=== PATIENT | male | born 1955 | race Caucasian/White ===

== ENCOUNTER 2018-02-06 12:03 | Emergency (ER) | payer MEDICAID ==
[2018-02-06 12:04] VITALS: BMI 26.5
--- NOTE | 2018-02-06 12:59 | ED PDOC ---
Arrival/HPI - General Chief Complaint: Abnormal Skin Integrity Time Seen by Provider: 02/06/18 12:55 Historian: Patient - History of Present Illness Narrative History of Present Illness (Text): 02/06/18 12:56 62yo male with no pmhx who present with complaint of pruritic rash x 2days. Thinks is from "bug bites". He otherwise denies sore throat, fever, chills, lymph node swelling, any new inciting factors, any other complaint. Past Medical History - Provider Review Nursing Documentation Reviewed: Yes - Infectious Disease Hx of Infectious Diseases: None - Tetanus Immunization Tetanus Immunization: Unknown - Cardiac Hx Cardiac Disorders: No - Pulmonary Hx Respiratory Disorders: No - Neurological Hx Neurological Disorder: Yes Hx Syncope: Yes Other/Comment: syncopal episodes-VASOVAGAL - HEENT Hx HEENT Disorder: Yes - Renal Hx Renal Disorder: No - Endocrine/Metabolic Hx Endocrine Disorders: No - Hematological/Oncological Hx Blood Disorders: No - Integumentary Hx Dermatological Disorder: No - Musculoskeletal/Rheumatological Hx Musculoskeletal Disorders: No Hx Falls: No - Gastrointestinal Hx Gastrointestinal Disorders: Yes Hx Gastroesophageal Reflux: Yes - Genitourinary/Gynecological Hx Genitourinary Disorders: No - Psychiatric Hx Psychophysiologic Disorder: No Hx Depression: No Hx Emotional Abuse: No Hx Physical Abuse: No Hx Substance Use: No - Past Surgical History Past Surgical History: No Previous - Anesthesia Hx Anesthesia: No - Suicidal Assessment Feels Threatened In Home Enviroment: No Family/Social History - Physician Review Nursing Documentation Reviewed: Yes Family/Social History: Unknown Family HX Smoking Status: Former Smoker Hx Alcohol Use: No Hx Substance Use: No Hx Substance Use Treatment: No Allergies/Home Meds Allergies/Adverse Reactions: Allergies No Known Allergies Allergy (Verified 06/01/16 08:57) Home Medications: Home Meds Medication Instructions Recorded Confirmed Omeprazole 20 mg PO PRN PRN 06/01/16 02/06/18 Review of Systems - Physician Review All systems were reviewed & negative as marked: Yes - Review of Systems Constitutional: Normal Eyes: Normal ENT: Normal Respiratory: Normal Cardiovascular: Normal Gastrointestinal: Normal Genitourinary Male: Normal Musculoskeletal: Normal Skin: Rash, Pruritis Neurological: Normal Endocrine: Normal Hemo/Lymphatic: Normal Psychiatric: Normal Physical Exam Vital Signs Reviewed: Yes Vital Signs Temp Pulse Resp BP Pulse Ox 02/06/18 13:38 98.3 F 72 18 124/71 99 02/06/18 12:16 98.0 F 82 17 117/73 98 Temperature: Afebrile Blood Pressure: Normal Pulse: Regular Respiratory Rate: Normal Appearance: Positive for: Well-Appearing, Non-Toxic, Comfortable Pain Distress: None Mental Status: Positive for: Alert and Oriented X 3 - Systems Exam Head: Present: Atraumatic, Normocephalic Pupils: Present: PERRL Extroacular Muscles: Present: EOMI Conjunctiva: Present: Normal Mouth: Present: Moist Mucous Membranes Neck: Present: Normal Range of Motion Respiratory/Chest: Present: Clear to Auscultation, Good Air Exchange. No: Respiratory Distress, Accessory Muscle Use Cardiovascular: Present: Regular Rate and Rhythm, Normal S1, S2. No: Murmurs Abdomen: No: Tenderness, Distention, Peritoneal Signs Back: Present: Normal Inspection Upper Extremity: Present: Normal Inspection. No: Cyanosis, Edema Lower Extremity: Present: Normal Inspection. No: Edema Neurological: Present: GCS=15, CN II-XII Intact, Speech Normal Skin: Present: Warm, Dry, Rashes (Combination of raised papular, macular and nodulated rash noted to b/l palm and volar hand.), Normal Color Psychiatric: Present: Alert, Oriented x 3, Normal Insight, Normal Concentration Medical Decision Making ED Course and Treatment: 02/06/18 18:52 PT presented for stated history. He presented with rash. He was treated with both permethrin, prednisone and Benadryl Referred to a hot wire glass tube cutter He was also seen in ED by Dr. Oseguera - Medication Orders Current Medication Orders: Discontinued Medications Diphenhydramine HCl (Benadryl) 25 mg PO STAT STA Stop: 02/06/18 13:01 Last Admin: 02/06/18 13:36 Dose: 25 mg Permethrin (Permethrin 5% Cream) 0 gm TOP ONCE STA Stop: 02/06/18 13:02 Last Admin: 02/06/18 13:37 Dose: 1 gm Prednisone (Prednisone Tab) 40 mg PO STAT STA Stop: 02/06/18 13:02 Last Admin: 02/06/18 13:36 Dose: 40 mg Disposition/Present on Arrival - Present on Arrival Any Indicators Present on Arrival: No History of DVT/PE: No History of Uncontrolled Diabetes: No Urinary Catheter: No History of Decub. Ulcer: No History Surgical Site Infection Following: None - Disposition Have Diagnosis and Disposition been Completed?: Yes Diagnosis: Insect bite Disposition: HOME/ ROUTINE Disposition Time: 13:05 Patient Plan: Discharge Condition: STABLE Discharge Instructions (ExitCare): Insect Bites and Stings Additional Instructions: Follow up with your Doctor Return to ED for any new or worsening symptoms Prescriptions: DiphenhydrAMINE [Benadryl] 25 mg PO Q6 #20 cap predniSONE [Prednisone] 10 mg PO DAILY #4 tab Referrals: Almaz Ramos MD [Primary Care Provider] - Follow up with primary Forms: [employer] ([place])
[2018-02-06] MEDS ORDERED: DiphenhydrAMINE 12.5 mg/5 ml LIQ UD (5 ml) PO STA (13:00)
[2018-02-06] MEDS ORDERED: Permethrin 5% Cream(60 gm) TOP STA (13:01)
[2018-02-06 13:41] VITALS: BP 124/71; PULSE 72; RESP 18; TEMP 98.3; O2SAT 99
== END 2018-02-06 13:41 | disposition home or self-care (01) ==
LOC: ED 12:03
DX: S60.562A Insect bite (nonvenomous) of left hand, initial encounter (principal); S60.561A Insect bite (nonvenomous) of right hand, initial encounter; W57.XXXA Bitten or stung by nonvenomous insect and other nonvenomous arthropods, initial encounter; Z87.891 Personal history of nicotine dependence